=== PATIENT | female | born 1940 | race Caucasian/White ===

== ENCOUNTER 2019-04-29 10:49 | Outpatient (CLI) | payer MEDICARE, BC ==
--- NOTE | 2019-04-29 14:36 | CT ---
CT SINUSES: Date: 04/29/19 Coronal images are presented. INDICATION: Sinusitis. FINDINGS: Frontal air cells are small, but are clear. The ethmoid air cells are clear with no mucosal edema. Th e maxillary sinuses are well aerated and clear with no mucosal edema. The infundibula are patent. There is mucosal edema seen in the left sphenoid air cell. The mid and right sphenoid air cells are c lear. Visualized mastoid air cells are clear. IMPRESSION: Mild paranasal sinus mucosal edema is noted in the left sphenoid air cell. The paranasal sinuses are otherwise well aerated and clear. POS: [facility]
== END 2019-04-29 10:50 | disposition home or self-care (01) ==
LOC: SCSCT 10:49
PROVIDERS: ATTEND Allergy & Immunology
DX: J32.9 Chronic sinusitis, unspecified (principal)